=== PATIENT | male | born 1935 | race Caucasian/White ===

== ENCOUNTER → 2021-01-24 | Outpatient (CLI) | payer MEDICARE, OTHER | LOC: CSHWCC 12:51 | PROVIDERS: ATTEND Nurse Practitioner Family | DX: I87.312 Chronic venous hypertension (idiopathic) with ulcer of left lower extremity (principal); I87.2 Venous insufficiency (chronic) (peripheral); L97.222 Non-pressure chronic ulcer of left calf with fat layer exposed; L03.116 Cellulitis of left lower limb; E78.2 Mixed hyperlipidemia; I69.959 Hemiplegia and hemiparesis following unspecified cerebrovascular disease affecting unspecified side; I73.9 Peripheral vascular disease, unspecified; K25.4 Chronic or unspecified gastric ulcer with hemorrhage; B96.89 Other specified bacterial agents as the cause of diseases classified elsewhere; R60.0 Localized edema | CPT/HCPCS: 11042 ==

== ENCOUNTER 2021-02-07 09:19 | Outpatient (CLI) | payer MEDICARE, OTHER | END 2021-02-07 09:20 | disposition home or self-care (01) | LOC: CSHWCC 09:19 | PROVIDERS: ATTEND Nurse Practitioner Family | DX: I87.312 Chronic venous hypertension (idiopathic) with ulcer of left lower extremity (principal); I87.2 Venous insufficiency (chronic) (peripheral); L97.222 Non-pressure chronic ulcer of left calf with fat layer exposed; K25.4 Chronic or unspecified gastric ulcer with hemorrhage; I73.9 Peripheral vascular disease, unspecified; I69.959 Hemiplegia and hemiparesis following unspecified cerebrovascular disease affecting unspecified side; R60.0 Localized edema | CPT/HCPCS: 11042; 29581; 99213; G0463 ==

== ENCOUNTER 2021-04-11 10:26 | Outpatient (CLI) | payer MEDICARE, OTHER | END 2021-04-11 10:27 | disposition home or self-care (01) | LOC: CSHWCC 10:26 | PROVIDERS: ATTEND Nurse Practitioner Family | DX: I87.2 Venous insufficiency (chronic) (peripheral) (principal); E78.2 Mixed hyperlipidemia; I10 Essential (primary) hypertension; I69.959 Hemiplegia and hemiparesis following unspecified cerebrovascular disease affecting unspecified side; I73.9 Peripheral vascular disease, unspecified; K25.4 Chronic or unspecified gastric ulcer with hemorrhage; L03.116 Cellulitis of left lower limb; B96.89 Other specified bacterial agents as the cause of diseases classified elsewhere; R60.0 Localized edema | CPT/HCPCS: 97139; G0463; 99212 ==

== ENCOUNTER 2022-08-26 13:08 | Outpatient (CLI) | payer MEDICARE, OTHER | END 2022-08-26 13:09 | disposition home or self-care (01) | LOC: CSHWCC 13:08 | PROVIDERS: ATTEND Nurse Practitioner Family | DX: I87.312 Chronic venous hypertension (idiopathic) with ulcer of left lower extremity (principal); L97.822 Non-pressure chronic ulcer of other part of left lower leg with fat layer exposed; R60.0 Localized edema | CPT/HCPCS: 29581; 87070; 87205; 99213; G0463 ==

== ENCOUNTER 2022-10-09 12:55 | Outpatient (CLI) | payer MEDICARE, OTHER | END 2022-10-09 12:56 | disposition home or self-care (01) | LOC: CSHWCC 12:55 | PROVIDERS: ATTEND Nurse Practitioner Family | DX: I87.312 Chronic venous hypertension (idiopathic) with ulcer of left lower extremity (principal); L97.822 Non-pressure chronic ulcer of other part of left lower leg with fat layer exposed ==